=== PATIENT | female | born 1965 | race Caucasian/White ===

== ENCOUNTER 2021-06-05 11:24 | Emergency (ER) | payer OTHER ==
[~2021-06-05] VITALS: Ht 157.5 cm; Wt 83.9 kg
[~2021-06-05 11:24] MED LIST: FLOMAX PO; HORMONE REPLACEMENT; LISINOPRIL; METFORMIN; NORCO 5-325 TA1 EACH PO
[2021-06-05] MEDS ORDERED: JANUVIA25 MG PO (12:17)
[2021-06-05] MEDS ORDERED: ZANTAC-360 (FAM20 MG PO (12:18)
[2021-06-05 15:47] LABS: ABSOLUTE LYMPHOCYTES 0.7 thou/uL (0.8-5.3); ABSOLUTE MONOCYTES 0.3 thou/uL (0.0-1.2); ABSOLUTE NEUTROPHILS 5.1 thou/uL (1.6-8.1); BASOPHILS 0.7 %; EOSINOPHILS 0.1 %; HEMATOCRIT 41.4 % (37.0-47.0); HEMOGLOBIN 13.6 gm/dL (12.0-15.0); LYMPHOCYTES 11.2 %; MCH 28.4 pg (26.0-34.0); MCHC 32.9 g/dL (28.0-37.0); MCV 86.1 fL (80.0-100.0); MONOCYTES 4.7 %; MPV 7.1 fl. (7.2-11.1); NUCLEATED RBCS 0 /100WBC; PLATELET COUNT* 221 thou/uL (150-400); POLYS 83.3 %; RBC 4.81 mil/uL (4.20-5.00); RDW-CV 13.3 % (10.5-14.5); WBC 6.1 thou/uL (4.0-11.0)
[2021-06-05 15:51] LABS: CALCIUM 8.3 mg/dL (8.5-10.1); CREATININE 0.8 mg/dL (0.6-1.3); POTASSIUM 3.3 mmol/L (3.5-5.1)
[2021-06-05 15:56] LABS: ALBUMIN 3.5 g/dL (3.4-5.0); TOTAL BILIRUBIN 0.4 mg/dL (<0.1-1.0); TOTAL PROTEIN 7.3 g/dL (6.4-8.2)
[2021-06-05] MEDS ORDERED: ZPAK PO (16:02)
[2021-06-05] MEDS ORDERED: DEXAMETHASONE 44 M1 PO (16:02)
[2021-06-05] MEDS ORDERED: PULMICORT FLEX90 MCG INH (16:02)
[2021-06-05] MEDS ORDERED: PROMETH-CODEIN 65 ML PO (16:02)
[2021-06-05 16:22] VITALS: BP 161/77
== END 2021-06-05 16:22 | disposition home or self-care (01) ==
LOC: M.ERS 11:24
PROVIDERS: Family Medicine
DX: U07.1 COVID-19 (principal); E11.9 Type 2 diabetes mellitus without complications; Z79.899 Other long term (current) drug therapy